=== PATIENT | male | born 1935 | race Caucasian/White ===

== ENCOUNTER 2019-03-11 14:55 | Inpatient (IN) | payer MEDICARE, OTHER ==
[~2019-03-11] VITALS: Ht 170.2 cm; Wt 85.2 kg
[~2019-03-11 14:55] MED LIST: ASPI81CH PO; METF500 PO; Macrodantin100 MG PO; PRAV20 PO; TAMS.4ER PO
[2019-03-11 15:59] LABS: BASOPHILS ABSOLUTE AUTO 0.06 K/mm3 (0.00-0.23); BASOPHILS PERCENT AUTO 0 % (0-2); EOSINOPHILS ABSOLUTE AUTO 0.01 K/mm3 (0.00-0.68); EOSINOPHILS PERCENT AUTO 0 % (0-6); Hematocrit 46.8 % (37.0-53.0); Hemoglobin 15.3 g/dL (13.5-17.5); IMMATURE GRAN ABSOLUTE AUTO 0.09 K/mm3 (0.00-0.10); IMMATURE GRAN PERCENT AUTO 1 % (0-1); LYMPHOCYTES ABSOLUTE AUTO 2.22 K/mm3 (0.84-5.20); LYMPHOCYTES PERCENT AUTO 12 % (21-46); MONOCYTES ABSOLUTE AUTO 1.39 K/mm3 (0.16-1.47); MONOCYTES PERCENT AUTO 8 % (4-13); Mean Corpuscular HGB 30.1 pg (26.0-34.0); Mean Corpuscular HGB Conc 32.7 g/dL (31.5-36.5); Mean Corpuscular Volume 92 fL (80-100); NEUTROPHILS ABSOLUTE AUTO 14.36 K/mm3 (1.96-9.15); NEUTROPHILS PERCENT AUTO 79 % (41-73); Platelet Count 372 K/mm3 (150-400); RDW Coefficient Variation 13.2 % (11.7-14.2); RDW Standard Deviation 44.8 fL (35.1-46.3); Red Blood Cell Count 5.09 M/mm3 (4.30-5.90); White Blood Cell Count 18.13 K/mm3 (4.00-11.30)
[2019-03-11 16:21] LABS: Alanine Aminotransfer (ALT/SGP 28 U/L (12-78); Albumin, Blood 3.7 g/dL (3.4-5.0); Albumin/Globulin Ratio 0.8 (0.8-1.8); Alk Phos 110 U/L (50-136); Anion Gap 7 mmol/L (6-16); Aspartate Aminotrans (AST/SGOT 13 U/L (12-37); Bilirubin, Total 0.3 mg/dL (0.1-1.0); Blood Urea Nitrogen 28 mg/dL (8-24); Bun/Creatinine Ratio 33.3 (12.0-20.0); CO2, Blood 27 mmol/L (21-32); Calcium, Blood 9.8 mg/dL (8.5-10.1); Chloride, Blood 101 mmol/L (98-108); Creatinine, Blood 0.84 mg/dL (0.60-1.20); Globulin, Blood 4.6 g/dL (2.2-4.0); Glomerular Filtration Rate >60 (60-); Glucose, Blood 514 mg/dL (70-99); Potassium, Blood 4.7 mmol/L (3.5-5.5); Sodium, Blood 135 mmol/L (136-145); Total Protein, Blood 8.3 g/dL (6.4-8.2)
[2019-03-11 20:02] LABS: Source, Urine Catheter
[2019-03-11 20:05] LABS: Bilirubin, Urine Neg (Neg); Blood, Urine 1+ (Neg); Glucose Qualitative, Urine 4+ (Neg); Ketones, Urine Neg (Neg); Leukocyte Esterase, Urine 3+ (Neg); Nitrite, Urine Neg (Neg); Protein, Urine Neg (Neg); Specific Gravity, Urine 1.015 (1.003-1.022); Urobilinogen, Urine NORM (Normal)
[2019-03-11 20:11] LABS: Appearance, Urine Clear (Clear); Color, Urine Pale Yellow (P-Yellow)
[2019-03-11 20:13] LABS: White Blood Cells, Urine 25-50 /hpf (0-5)
[2019-03-11 20:14] LABS: Bacteria Many /hpf; Squamous Epithelial Cells Rare /hpf (Few)
[2019-03-12 06:49] LABS: BASOPHILS ABSOLUTE AUTO 0.05 K/mm3 (0.00-0.23); BASOPHILS PERCENT AUTO 0 % (0-2); EOSINOPHILS ABSOLUTE AUTO 0.13 K/mm3 (0.00-0.68); EOSINOPHILS PERCENT AUTO 1 % (0-6); Hematocrit 43.2 % (37.0-53.0); Hemoglobin 13.9 g/dL (13.5-17.5); IMMATURE GRAN ABSOLUTE AUTO 0.03 K/mm3 (0.00-0.10); IMMATURE GRAN PERCENT AUTO 0 % (0-1); LYMPHOCYTES ABSOLUTE AUTO 2.46 K/mm3 (0.84-5.20); LYMPHOCYTES PERCENT AUTO 22 % (21-46); MONOCYTES ABSOLUTE AUTO 1.25 K/mm3 (0.16-1.47); MONOCYTES PERCENT AUTO 11 % (4-13); Mean Corpuscular HGB 29.4 pg (26.0-34.0); Mean Corpuscular HGB Conc 32.2 g/dL (31.5-36.5); Mean Corpuscular Volume 92 fL (80-100); Mean Platelet Volume 10.7 fL (9.1-12.4); NEUTROPHILS ABSOLUTE AUTO 7.46 K/mm3 (1.96-9.15); NEUTROPHILS PERCENT AUTO 66 % (41-73); Platelet Count 343 K/mm3 (150-400); RDW Coefficient Variation 13.4 % (11.7-14.2); RDW Standard Deviation 45.7 fL (35.1-46.3); Red Blood Cell Count 4.72 M/mm3 (4.30-5.90); White Blood Cell Count 11.38 K/mm3 (4.00-11.30)
[2019-03-12 07:10] LABS: Anion Gap 4 mmol/L (6-16); Blood Urea Nitrogen 25 mg/dL (8-24); CO2, Blood 28 mmol/L (21-32); Calcium, Blood 8.6 mg/dL (8.5-10.1); Chloride, Blood 108 mmol/L (98-108); Creatinine, Blood 0.72 mg/dL (0.60-1.20); Glomerular Filtration Rate >60 (60-); Glucose, Blood 318 mg/dL (70-99); Potassium, Blood 4.1 mmol/L (3.5-5.5); Sodium, Blood 140 mmol/L (136-145)
[2019-03-12] MEDS ORDERED: METF500 PO (14:57)
[2019-03-12] MEDS ORDERED: GLIP5 PO (14:57)
[2019-03-12] MEDS ORDERED: TAMS.4ER PO (14:58)
[2019-03-12] MEDS ORDERED: FINA5 PO (14:59)
[2019-03-12] MEDS ORDERED: SERT25 PO (14:59)
--- NOTE | 2019-03-12 15:30 | NUR ---
pt arrived to [facility] via gurney from ed, report obtained, pt able to stand and transfer to bed with one person assist, he is confused and hopi but follows commands well, and is cooperative with care, lungs are clear t/o, resp even and unlabored, no cough noted, hrr, no edema noted, ppp+1, cap refill<3sec, vs stable, afebrile, iv site is clear and patent btx4, abd flat soft nontender, attends in place due to incont. of bowel and bladder, skin c/w/d, [place], savita, call light in reach.
--- NOTE | 2019-03-12 18:26 | NUR ---
pt sat up to eat dinner, ate all of it and is back to sleeping again. denies any complaints, call light in reach.
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
--- NOTE | 2019-03-13 12:08 | NUR ---
AM NOTE PT ALERT AND ORIENTED TO SELF ONLY. NO ATTEMPT TO CLIMB OOB. BED ALARM ON. NO FAMILY VISIT OR AVAILABLE BY PHONE. PT PHARMACY IS [facility] AND THEY ARE CLOSED TODAY. WILL PERSUE MEDICATION LIST TOMORROW WHEN [facility] IS OPEN. PT COOPERA TIVE WITH CARE. PT COMPLETELY INCONTINET. HE HAS NO IDEA HE IS WET OR NEEDS TO URINATE. PT HAS A LARGE APPETITE. HE EATS EVERYTHING PUT IN FRONT OF HIM. QUICKLY. PT VERY [place] OWING[place]. HE IS AGREEABLE TO CARE. ROLLS, BRIDGES, TURNS WHEN ASKED. NO ATTEMPT TO PULL IV OUT. TALKED WITH DR FERNANDO ABOUT PT RIGHT EYE. PT RIGHT EYE HAS DISCHARGE AND IS RED. NO ORDER RECEIVED. CHECK PT ATTENDS Q2H TO PROTECT SKIN. WOUNDS ON BUTTOCKS ORANGE CREAM APPLIED. CONTINUE POT.
[2019-03-13] MEDS ORDERED: ASPI325 PO (15:26)
--- NOTE | 2019-03-14 04:58 | NUR ---
SHIFT SUMMARY ASSUMED CARE OF PT AT 1900 HRS, PT RESTING ON RT SIDE IN BED W/ NO SIGNS OF DISTRESS. GAVE CARE PER MD ORDER AND UNIT PROTOCOL; ALL VSS T/O SHIFT. PT IS INCONTINENT. WOUND CARE TO L KNEE: MILD TO NO EXUDATE PRESENT; WASHED WITH WOUND CLEANSER, DABBED DRY, APPLIED SILVER SULFA CREAM, AND WRAPPED WITH GAUZE. PRESSURE ULCER TO BILAT BUTTOCKS TREATED WITH ORANGE-TOP CALAZIME CREAM AND NOT COVERED DUE TO PT INCONTINENCE AND RISK OF SATURATION. PATIENT ANSWERED AND ACTED APPROPRIATELY THIS SHIFT, AND USED CALL LIGHT ONCE, BY ERROR. HE DID NOT TRY TO GET OUT OF BED. WILL CONTINUE TO GIVE CARE AND MONITOR UNTIL PASSING REPORT TO ONCOMING SHIFT. BED LOCKED & LOW, BED ALARM ACTIVE, CALL LIGHT IN REACH.
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
--- NOTE | 2019-03-14 12:09 | NUR ---
1100-Patient up in chair, note IV out intact on bedside table, patient removed it on his own-wanting to get out of here. No bleeding noted at insertion site. Assisted patient back to bed as he seems to be getting aggitated in chair. Bed Alarm turned on.
[2019-03-14] MEDS ORDERED: BASAGLAR K100 UNIT/1 SC (12:46)
--- NOTE | 2019-03-14 15:12 | NUR ---
DISCHARGE SUMMARY-Patient's step-son "Alireza" arrived to take patient home around 1315. Requesting Rx called to [facility] in [place]-done. Requesting [facility] for service-Radha Alvarez notified. Discharge instructions and education given to Alireza verbal/written form. Alireza verbalizes understanding after having instructions repeated several times by RN as Alireza continues to ask questions or go off topic. Assisted Alireza in getting patient dressed after patient ambulated to [facility] with FWW and 1 person assist. Dry Attends placed as patient was incontinent. Patient continues to be impulsive and doesn't follow direction well, definite fall risk at home. Wheeled patient out to Alireza's car around 1405.
== END 2019-03-14 14:07 | disposition home health service (06) | DRG 871 ==
LOC: ER 14:55 → ERHOLD 22:44 → PCU 03-12 14:25
PROVIDERS: Emergency Medicine; Nurse Practitioner Acute Care; Physician Assistant; ADMIT Internal Medicine
DX: A41.9 Sepsis, unspecified organism (principal); G92 Toxic encephalopathy; N39.0 Urinary tract infection, site not specified; F03.90 Unspecified dementia, unspecified severity, without behavioral disturbance, psychotic disturbance, mood disturbance, and anxiety; E11.65 Type 2 diabetes mellitus with hyperglycemia; Z66 Do not resuscitate; E86.0 Dehydration; W19.XXXA Unspecified fall, initial encounter; Y93.9 Activity, unspecified; Y92.002 Bathroom of unspecified non-institutional (private) residence as the place of occurrence of the external cause; Z86.73 Personal history of transient ischemic attack (TIA), and cerebral infarction without residual deficits; Z91.14 Patient's other noncompliance with medication regimen; Z87.891 Personal history of nicotine dependence; Z79.84 Long term (current) use of oral hypoglycemic drugs; Z79.82 Long term (current) use of aspirin; Z79.899 Other long term (current) drug therapy
CPT/HCPCS: 36415; 51701; 70450; 71045; 80048; 80053; 81001; 82947; 83036; 85025; 87086; 96361; 96365; 96372-59; 97110; 97162; 97166; 97530; 99285-25; J0696; J1650; J1815; J7030

== ENCOUNTER → 2019-03-21 | Outpatient (CLI) | payer MEDICARE, OTHER ==
[~2019-03-21] MED LIST changes: +ASPI325 PO; +BASAGLAR K100 UNIT/1 SC; +FINA5 PO; +GLIP5 PO; +SERT25 PO
[2019-03-21 11:44] LABS: Source, Urine Clean Catch
[2019-03-21 12:30] LABS: Appearance, Urine Clear (Clear); Bilirubin, Urine Neg (Neg); Blood, Urine Neg (Neg); Color, Urine Yellow (P-Yellow); Glucose Qualitative, Urine 3+ (Neg); Ketones, Urine Neg (Neg); Leukocyte Esterase, Urine 1+ (Neg); Nitrite, Urine Neg (Neg); Protein, Urine 1+ (Neg); Specific Gravity, Urine 1.025 (1.003-1.022); Urobilinogen, Urine NORM (Normal)
[2019-03-21 13:03] LABS: Bacteria Rare /hpf; Mucus Light ({null, 0-Heavy}); Red Blood Cells, Urine 0-2 /hpf (0-2); Squamous Epithelial Cells Rare /hpf (Few); White Blood Cells, Urine 0-2 /hpf (0-5)
== END | disposition home or self-care (01) ==
LOC: LAB SHORT 11:37 → OLS 11:37
PROVIDERS: Internal Medicine
DX: N39.0 Urinary tract infection, site not specified (principal)
CPT/HCPCS: 81001; 87077; 87086; 87147; 87185; 87186